=== PATIENT | female | born 1995 | race African-American/Black ===

== ENCOUNTER 2019-06-20 18:20 | Emergency (ER) | payer OTHER ==
[~2019-06-20] VITALS: Ht 162.6 cm; Wt 54.0 kg
[2019-06-20 18:28] VITALS: BP 105/55
[2019-06-20] MEDS ORDERED: IBUPROFEN 600MG TABLET PO ONE (20:00)
== END 2019-06-20 21:39 | disposition home or self-care (01) ==
LOC: ER 18:20
DX: J06.9 Acute upper respiratory infection, unspecified (principal); J02.9 Acute pharyngitis, unspecified; B34.9 Viral infection, unspecified
CPT/HCPCS: 87070; 87430; 99283